=== PATIENT | male | born 1965 | race Caucasian/White ===

== ENCOUNTER 2021-01-28 03:18 | Emergency (ER) | payer SELFPAY ==
[2021-01-28] MEDS ORDERED: NORFLEX 100 MG100 MG PO (04:36)
[2021-01-28] MEDS ORDERED: LODINE CAP 300300 MG PO (04:36)
== END 2021-01-28 04:40 | disposition home or self-care (01) ==
LOC: ER1 03:18
DX: S76.912A Strain of unspecified muscles, fascia and tendons at thigh level, left thigh, initial encounter (principal); K21.9 Gastro-esophageal reflux disease without esophagitis; R10.31 Right lower quadrant pain; W01.0XXA Fall on same level from slipping, tripping and stumbling without subsequent striking against object, initial encounter
CPT/HCPCS: 73502; 96372; 99283; J1885; J2360

== ENCOUNTER 2021-03-03 13:08 | Emergency (ER) | payer SELFPAY ==
[~2021-03-03 13:08] MED LIST: LODINE CAP 300300 MG PO; NORFLEX 100 MG100 MG PO
[2021-03-03 17:08] LABS: HEMOGLOBIN 16.4 gm/dl (14.0-17.5); RED BLOOD COUNT 5.28 M/UL (4.20-5.50); WHITE BLOOD COUNT 14.1 K/UL (4.5-11.0)
[2021-03-03 17:28] LABS: BUN/CREATININE RATIO 18 (0-10)
[2021-03-03 18:30] LABS: ADENOVIRUS F 40/41 Not Detected (Negative); ASTROVIRUS Not Detected (Negative); CAMPYLOBACTER Not Detected (Negative); CLOSTRIDIUM DIFFICILE TOX A/B Not Detected (Negative); CRYPTOSPORIDIUM Not Detected (Negative); E.COLI 0157 Not Detected (Negative); ENTAMOEBA HISTOLYTICA Not Detected (Negative); ENTEROAGGREGATIVE E.COLI (EAEC Not Detected (Negative); ENTEROPATHOGENIC E.COLI (EPEC) Not Detected (Negative); ENTEROTOXIGENIC E.COLI (ETEC) Not Detected (Negative); GIARDIA LAMBLIA Not Detected (Negative); NOROVIRUS GI/GII Not Detected (Negative); PLESIOMONAS SHIGELLOIDES Not Detected (Negative); ROTOVIRUS A Not Detected (Negative); SALMONELLA Not Detected (Negative); SAPOVIRUS Not Detected (Negative); SHIG/ENTEROINVAS.ECOLI (EIEC) Not Detected (Negative); SHIGA-LIK TOX.PRO.E.COLI (STEC Not Detected (Negative); VIBRIO Not Detected (Negative); VIBRIO CHOLERAE Not Detected (Negative); YERSINIA ENTEROCOLITICA Not Detected (Negative)
[2021-03-03] MEDS ORDERED: ZOFRAN 4 MG TAB4 MG PO (18:46)
[2021-03-03] MEDS ORDERED: FLAGYL 250 MG250 MG PO (18:55)
== END 2021-03-03 19:35 | disposition home or self-care (01) ==
LOC: ER1 13:08
PROVIDERS: Emergency Medicine
DX: R10.9 Unspecified abdominal pain (principal); R11.2 Nausea with vomiting, unspecified; R19.7 Diarrhea, unspecified; Z20.822 Contact with and (suspected) exposure to COVID-19
CPT/HCPCS: 36415; 80053; 83605; 83690; 85025; 87040; 87507; 93005; 96374; 96375; 99284; J2270; J2405; Q9967; U0002